=== PATIENT | female | born 1970 | race Asian ===

== ENCOUNTER 2017-06-19 16:59 | Emergency (ER) | payer OTHER ==
[~2017-06-19] VITALS: Ht 165.1 cm; Wt 85.0 kg
[2017-06-19 17:01] VITALS: BP 108/76
== END 2017-06-19 20:00 | disposition left against medical advice (07) ==
LOC: ER 16:59
DX: Z53.21 Procedure and treatment not carried out due to patient leaving prior to being seen by health care provider (principal)